=== PATIENT | female | born 1940 | race Caucasian/White ===

== ENCOUNTER 2024-05-28 10:49 | Outpatient (CLI) | payer MEDICARE ==
[2024-05-28 11:45] LABS: #Basophils Less than 0.03 10x3/uL (0.0-0.2); #Eosinophils 0.06 10x3/uL (0.0-0.5); #Monocytes 0.54 10x3/uL (0.0-1.1); %Basophils 0.3 % (0.0-2.0); %Eosinophils 0.8 % (0.0-6.0); %Monocytes 7.1 % (0.0-10.0); %Neutrophils 76.4 % (40.0-75.0); Hematocrit 39.3 % (34.9-44.5); Hemoglobin 12.5 g/dL (12.0-15.5); Mean Corpuscular HGB CONC 31.8 g/dL (32.0-36.0); Mean Corpuscular Hemoglobin 26.5 pg (27.0-33.0); Mean Corpuscular Volume 83.4 fL (81.6-98.3); Mean Platelet Volume 10.8 fL (7.4-10.4); Platelet Count 253 10x3/uL (150-450); RBC Distribution Width 13.6 % (11.5-14.5); Red Blood Cell (RBC) Count 4.71 10x6/uL (3.90-5.03); White Blood Cell (WBC) Count 7.59 10x3/uL (3.5-10.5)
[2024-05-28 11:59] LABS: Anion Gap 12 mmol/L (10-20); BUN (Urea Nitrogen) 11 mg/dL (9.8-20.1); Calc. Creatinine Clearance 0 mL/min (70-130); Calcium 9.3 mg/dL (7.8-10.44); Carbon Dioxide 32 mmol/L (23-31); Chloride 100 mmol/L (98-107); Estimated GFR 86; Glucose 86 mg/dL (83-110); Potassium 3.5 mmol/L (3.5-5.1); Sodium 140 mmol/L (136-145)
== END 2024-05-28 10:50 | disposition home or self-care (01) ==
LOC: CSHLAB 10:49
PROVIDERS: ATTEND Specialist
DX: Z01.818 Encounter for other preprocedural examination (principal); K44.9 Diaphragmatic hernia without obstruction or gangrene; K21.9 Gastro-esophageal reflux disease without esophagitis
CPT/HCPCS: 71046; 80048; 85025; 93005; 93010

== ENCOUNTER 2024-06-03 05:25 | Observation (INO) | payer MEDICARE ==
[2024-05-28 11:22] VITALS: BMI 22.6
[2024-06-03] MEDS ORDERED: Ketorolac Tromethamine 30 MG (1 mL) VIAL ONE ×2 (06:37→13:37)
[2024-06-03] MEDS ORDERED: Acetaminophen 500 MG TAB ONE (06:38)
[2024-06-03] MEDS ORDERED: Bupivacaine/Epinephrine 0.25% 30 ML VIAL ONE (07:06)
[2024-06-03] MEDS ORDERED: CEFAZOLIN 2 GM VIAL ONE (07:14)
[2024-06-03] MEDS ORDERED: Ipratropium/Albuterol 3 ML NEB ONE (07:18)
[2024-06-03] MEDS ORDERED: Ondansetron PF 4 MG/2 ML Vial ONE (07:21)
[2024-06-03] MEDS ORDERED: SUGAMMADEX SODIUM 200 MG/2 ML VIAL ONE (07:21)
[2024-06-03] MEDS ORDERED: Dexamethasone 4 mg/ml Vial ONE (07:21)
[2024-06-03] MEDS ORDERED: Lidocaine 1% PF 5 ML VIAL ONE (07:21)
[2024-06-03] MEDS ORDERED: Rocuronium Bromide 10 MG/ML (10ML VIAL) ONE (07:21)
[2024-06-03] MEDS ORDERED: fentaNYL 50 mcg/mL 1 mL Vial ONE ×4 (07:22→11:09)
[2024-06-03] MEDS ORDERED: PROPOFOL 40 ML ONE (07:22)
[2024-06-03] MEDS ORDERED: Phenylephrine 40 MG/NS 250 ML 250 ML ONE (07:25)
[2024-06-03] MEDS ORDERED: Propofol 1,000 MG/100 ML VIAL IV ONE (07:26)
[2024-06-03] MEDS ORDERED: ePHEDrine Sulfate 50 MG/10 ML VIAL ONE (08:06)
[2024-06-03] MEDS ORDERED: hydrALAZINE 20 MG/ML VIAL SLOW IVP PRN (10:53)
[2024-06-03] MEDS ORDERED: Ondansetron PF 4 MG/2 ML Vial IVP PRN (10:53)
[2024-06-03] MEDS ORDERED: HYDROcodone/Acetaminophen 10/325 mg Tablet PO PRN (10:53)
[2024-06-03] MEDS ORDERED: Morphine 2 MG/ML VIAL SLOW IVP PRN (10:53)
[2024-06-03] MEDS ORDERED: Dextrose 50% Abboject 50 ML SYRINGE SLOW IVP PRN (10:53)
[2024-06-03] MEDS ORDERED: Promethazine HCl 25 MG/ML VIAL IM PRN (10:53)
[2024-06-03] MEDS ORDERED: Glucagon 1 MG/ML KIT IM PRN (10:53)
[2024-06-03] MEDS ORDERED: Calcium Carbonate 500 MG ChewTAB PO PRN (10:53)
[2024-06-03] MEDS ORDERED: Dextrose 5% in Water 1,000 ML IV PRN (10:53)
[2024-06-03] MEDS ORDERED: Ipratropium/Albuterol 3 ML NEB NEB PRN (10:53)
[2024-06-03] MEDS ORDERED: Morphine 4 MG/ML VIAL SLOW IVP PRN (10:53)
[2024-06-03] MEDS ORDERED: Mag-Al 1200 mg/1200 mg/30 ML UDCUP PO PRN (10:53)
[2024-06-03] MEDS ORDERED: HYDROcodone/Acetaminophen 10/325 mg Tablet ONE (13:37)
[2024-06-03] MEDS: Lactated Ringer's 1,000 ML IV SCH (18:21)
[2024-06-03] MEDS: Ketorolac Tromethamine 30 MG (1 mL) VIAL IVP SCH (18:22)
[2024-06-03] MEDS: Budesonide 0.5 MG/2 ML NEB NEB SCH (20:25)
[2024-06-03] MEDS ORDERED: Famotidine/PF 20 mg/2ml Vial SLOW IVP SCH (21:00)
[2024-06-03] MEDS ORDERED: Famotidine 20 MG TAB PO SCH (21:00)
[2024-06-03] MEDS: Atorvastatin Calcium 10 MG TAB PO SCH (23:19)
[2024-06-04 05:19] LABS: #Basophils Less than 0.03 10x3/uL (0.0-0.2); #Eosinophils Less than 0.03 10x3/uL (0.0-0.5); #Monocytes 1.17 10x3/uL (0.0-1.1); #Neutrophils 11.51 10x3/uL (1.5-8.4); %Basophils 0.1 % (0.0-2.0); %Lymphocytes 6.3 % (18.0-47.0); %Monocytes 8.6 % (0.0-10.0); %Neutrophils 84.7 % (40.0-75.0); Hematocrit 35.6 % (34.9-44.5); Hemoglobin 11.6 g/dL (12.0-15.5); Mean Corpuscular HGB CONC 32.6 g/dL (32.0-36.0); Mean Corpuscular Hemoglobin 27.3 pg (27.0-33.0); Mean Corpuscular Volume 83.8 fL (81.6-98.3); Mean Platelet Volume 11.2 fL (7.4-10.4); Platelet Count 198 10x3/uL (150-450); RBC Distribution Width 13.9 % (11.5-14.5); Red Blood Cell (RBC) Count 4.25 10x6/uL (3.90-5.03); White Blood Cell (WBC) Count 13.58 10x3/uL (3.5-10.5)
[2024-06-04 05:41] LABS: Anion Gap 12 mmol/L (10-20); BUN (Urea Nitrogen) 13 mg/dL (9.8-20.1); Calc. Creatinine Clearance 62 mL/min (70-130); Carbon Dioxide 26 mmol/L (23-31); Chloride 99 mmol/L (98-107); Estimated GFR 87; Glucose 98 mg/dL (83-110); Potassium 4.3 mmol/L (3.5-5.1); Sodium 133 mmol/L (136-145)
[2024-06-04] MEDS: Amlodipine 10 MG TAB PO SCH (08:43)
[2024-06-04] MEDS: Losartan 50 MG TAB PO SCH (08:45)
[2024-06-04] MEDS: Hydrochlorothiazide 25 MG TAB PO SCH (08:46)
[2024-06-04] MEDS: PARoxetine 20 MG TAB PO SCH (08:46)
[2024-06-04] MEDS: Pantoprazole 40 MG DR.TAB PO SCH (08:46)
[2024-06-04] MEDS: Anastrozole 1 MG TAB PO SCH (08:47)
[2024-06-04 12:51] VITALS: TEMP 98
[2024-06-04 15:17] VITALS: BP 154/60
== END 2024-06-04 14:20 | disposition home or self-care (01) ==
LOC: CSHSDC 05:25 → CSHTELE 10:53 → CSHSDC 10:53 → CSHTELE 16:07
PROVIDERS: ADMIT Specialist; ATTEND Specialist
PROC: 0BQT4ZZ Repair Diaphragm, Percutaneous Endoscopic Approach (ICD-10-PCS; principal; 2024-06-03)
DX: K44.9 Diaphragmatic hernia without obstruction or gangrene (principal); K21.9 Gastro-esophageal reflux disease without esophagitis; I10 Essential (primary) hypertension; E78.00 Pure hypercholesterolemia, unspecified; F41.9 Anxiety disorder, unspecified; F32.A Depression, unspecified; J44.9 Chronic obstructive pulmonary disease, unspecified; Z78.0 Asymptomatic menopausal state; Z96.653 Presence of artificial knee joint, bilateral; Z85.3 Personal history of malignant neoplasm of breast; Z85.118 Personal history of other malignant neoplasm of bronchus and lung; Z88.1 Allergy status to other antibiotic agents; Z79.51 Long term (current) use of inhaled steroids; Z79.899 Other long term (current) drug therapy
CPT/HCPCS: 43281; 80048; 85025; 94640; 94762; J1100; J1885 ×2; J2405; J2704 ×2; J3010; J7120 ×2; S2900; J7620; J7626

== ENCOUNTER 2024-08-18 10:15 | Outpatient (CLI) | payer MEDICARE | END 2024-08-18 10:16 | disposition home or self-care (01) | LOC: CSHCT 10:15 | PROVIDERS: ATTEND Internal Medicine | DX: Z12.2 Encounter for screening for malignant neoplasm of respiratory organs (principal); Z85.118 Personal history of other malignant neoplasm of bronchus and lung; C50.211 Malignant neoplasm of upper-inner quadrant of right female breast | CPT/HCPCS: 71271 ==

== ENCOUNTER 2025-02-11 09:48 | Outpatient (CLI) | payer MEDICARE | END 2025-02-11 09:49 | disposition home or self-care (01) | LOC: CSHMAMMO 09:48 | PROVIDERS: ATTEND Internal Medicine | DX: Z08 Encounter for follow-up examination after completed treatment for malignant neoplasm (principal); Z85.3 Personal history of malignant neoplasm of breast | CPT/HCPCS: 77066; G0279 ==